=== PATIENT | female | born 1945 | race Caucasian/White ===

== ENCOUNTER 2023-06-25 17:58 | Emergency (ER) | payer BC, MEDICARE, SELFPAY ==
[2023-06-25 18:12] VITALS: BP 185/83; PULSE 76; RESP 16; TEMP 36.9; O2SAT 97; BMI 20.8
--- NOTE | 2023-06-25 18:29 | CT_ITS ---
Patient: CHRISTOPHER MENDIOLA Facility:?[facility] Patient ID:?[id number] Site Patient ID:?[id number]. Site :?1945 Study:?CT-Facial W/O-06/25/2023 7:45:27 PM Ordering Physician:SONNY Final Report: INDICATION: Fall. TECHNIQUE: Noncontrast CT images of the facial bones. COMPARISON: None. FINDINGS: The facial bones are intact. No acute fracture or dislocation. The globes are symmetric. No retrobulbar hemorrhage. The paranasal sinuses are well aerated. The mastoid air cells are clear. IMPRESSION: No acute fracture or dislocation of the facial bones. Please note that all CT scans at this facility use dose modulation, iterative reconstruction, and/or weight-based dosing when appropriate to reduce radiation dose to as low as reasonably achievable. Dictated by Marcello Hussein MD @ 06/25/2023 8:07:12 PM Signed by:?Marcello Hussein MD @06/25/2023 8:07:12 PM (Electronic Signature)
--- NOTE | 2023-06-25 18:29 | CT_ITS ---
Patient: CHRISTOPHER MENDIOLA Facility:?[facility] Patient ID:?[id number] Site Patient ID:?[id number]. Site :?1945 Study:?CT-Chest W/O-06/25/2023 7:46:24 PM Ordering Physician:SONNY Final Report: INDICATION: Trauma. Chest pain. TECHNIQUE: Multiplanar CT examination of the chest was performed after the administration without the use of intravenous contrast. COMPARISON: None. FINDINGS: Lower neck: The visualized thyroid is unremarkable. Cardiovascular: Heart size is normal. Thoracic aorta and pulmonary artery are normal in caliber. Mild atherosclerotic calcifications of the aortic arch. Dense coronary arterial calcifications. Mediastinum and lymph nodes: Unremarkable. No pathologic mediastinal or hilar lymphadenopathy by size criteria. Lungs: Moderate pulmonary emphysema. Small calcified granuloma within the left lower lobe posteriorly measuring 3 millimeters. Dependent atelectasis. Linear bandlike opacification of the lung bases bilaterally, likely subsegmental atelectasis and/or scarring. No focal consolidation. Airway: The trachea remains patent and midline. Mild diffuse peribronchial wall thickening. Pleura: No pleural effusions or pneumothorax Chest wall: There is a lobulated soft tissue mass measuring 4.6 x 2.1 cm along the right anterior chest wall/breast it appears have associated coarse calcifications. Bones: Likely acute, minimally displaced fractures of the anterior aspect of the left 3rd and 4th ribs. Mild degenerative changes of the thoracic spine. Upper abdomen: Unremarkable. IMPRESSION: 1. Likely acute, minimally displaced fractures of the anterior left 3rd and 4th ribs. No pneumothorax or pleural effusions. 2. Large lobulated soft tissue attenuating mass measuring 4.6 cm within the right breast. This would be an atypical appearance of a hematoma, given the presence of punctate, coarse calcifications. Advise direct inspection and correlate with recent or follow-up mammography for further evaluation to exclude underlying neoplasm. 3. Moderate emphysema. 4. Dense coronary arterial calcifications. Advise correlation with ASCVD evaluation. Please note that all CT scans at this facility use dose modulation, iterative reconstruction, and/or weight-based dosing when appropriate to reduce radiation dose to as low as reasonably achievable. Dictated by Xavier Kline MD @ 06/25/2023 8:19:25 PM ----- ADDENDUM ----- Findings communicated with Dr. Garcia at 20:32 on 06/25/2023. Dictated by Xavier Kline MD @ Jun 25 2023 9:20PM Signed by:?Xavier Kline MD @06/25/2023 8:19:25 PM (Electronic Signature)
--- NOTE | 2023-06-25 18:30 | CT_ITS ---
Patient: CHRISTOPHER MENDIOLA Facility:?[facility] Patient ID:?[id number] Site Patient ID:?[id number]. Site :?1945 Study:?CT-Spine Cervical W/O-06/25/2023 7:47:14 PM Ordering Physician:SONNY Final Report: INDICATION: Fall. TECHNIQUE: Noncontrast CT images of the cervical spine. COMPARISON: None. FINDINGS: Reversal of the cervical lordosis. Mild leftward cervical curvature. No acute fracture or traumatic subluxation. Advanced disc height loss at C5-6. Multilevel posterior disc osteophyte complexes contribute up to moderate spinal canal narrowing at C6-7. Multilevel uncinate spurring and facet arthropathy contributing up to moderately advanced neural foraminal stenosis bilaterally at C5-6. Emphysema in the lung apices. IMPRESSION: 1. No acute fracture or traumatic subluxation. 2. Multilevel cervical spondylosis. Please note that all CT scans at this facility use dose modulation, iterative reconstruction, and/or weight-based dosing when appropriate to reduce radiation dose to as low as reasonably achievable. Dictated by Marcello Hussein MD @ 06/25/2023 8:09:36 PM Signed by:?Marcello Hussein MD @06/25/2023 8:09:36 PM (Electronic Signature)
--- NOTE | 2023-06-25 18:30 | CT_ITS ---
Patient: CHRISTOPHER MENDIOLA Facility:?[facility] Patient ID:?[id number] Site Patient ID:?[id number]. Site :?1945 Study:?CT-Head W/O-06/25/2023 7:44:07 PM Ordering Physician:SONNY Final Report: INDICATION: Fall. TECHNIQUE: Noncontrast CT images of the brain. COMPARISON: None. FINDINGS: Mild diffuse cerebral volume loss. No mass effect or midline shift. The starks- white differentiation is maintained. No acute intracranial hemorrhage or pathologic extra-axial fluid collection. Scattered hypoattenuation in the supratentorial white matter, typical for mild chronic microvascular ischemic changes. Intracranial atherosclerotic calcifications. The globes are symmetric. The calvarium is intact. The visualized paranasal sinuses and mastoid air cells are clear. IMPRESSION: No acute intracranial hemorrhage or mass effect. Please note that all CT scans at this facility use dose modulation, iterative reconstruction, and/or weight-based dosing when appropriate to reduce radiation dose to as low as reasonably achievable. Dictated by Marcello Hussein MD @ 06/25/2023 8:05:09 PM Signed by:?Marcello Hussein MD @06/25/2023 8:05:09 PM (Electronic Signature)
--- NOTE | 2023-06-25 18:32 | ED.FALL ---
HPI - Fall General Date Seen: 06/25/23 Chief Complaint: Fall/Minor Trauma Stated Complaint: fell, mouth and rib pain Time Seen by Provider: 06/25/23 18:04 Source: patient Mode of arrival: ambulatory Limitations: no limitations History of Present Illness HPI Narrative: Patient is a 77-year-old female presenting to the emergency department after a fall. At 09:30 she states she got dizzy and fell. States the dizziness occurred because she has been trying to quit smoking and has not has occurred for several days. She gave in and bought pack of cigarettes and after she had 1 she started walking in the dizziness occurred causing her to fall. She is currently not dizzy. Initially was not in any pain. She states this dizziness routinely occurs after she smokes a cigarette after trying to quit for several days. This is not any different than normal for her after she smokes. Initially was not having pain but is daily was going on she is having worsening left rib pain. She has pain in the left axillary region that is better when she supports her left breast. Currently feels asymptomatic other than the pain. Denies chest pain, shortness of breath, headache, vision changes, weakness, numbness, diarrhea, constipation. Does state her neck feels stiff. No other concerns noted at this time. She does home with her daughter. Related Data Home Medications Medication Instructions Recorded Confirmed aspirin 81 mg tablet,delayed 81 mg PO DAILY 06/25/23 06/25/23 release (Adult Low Dose Aspirin) atorvastatin 40 mg tablet 40 mg PO DAILY 06/25/23 06/25/23 Allergies Allergy/AdvReac Type Severity Reaction Status Date / Time tetracycline Allergy Unknown Verified 06/25/23 18:17 Review of Systems Status of ROS: Reports: 10 or more systems reviewed and unremarkable except as noted in History and below [facility] Social History Smoking Status: Current some day smoker What tobacco products do you use: cigarettes Do you use any of these nicotine containing products: None Second hand tobacco smoke exposure: No How often do you have a drink containing alcohol: monthly or less How many standard drinks containing alcohol do you have on a typical day: 1 or 2 How often do you have six or more drinks on one occasion: Never AUDIT-C Alcohol total score: 1 Non-prescribed substance use: denies use service: No Exam Narrative: Exam Narrative: Const: Well-nourished, Well-developed, in mild distress Eyes: PERRL, no conjunctival injection, and symmetrical lids HENT: Atraumatic external nose and ears. Moist mucous membranes. Abrasion to left upper lip Neck: Symmetric, trachea midline, No thyromegaly. CVS: RRR, No murmurs or gallops. Peripheral pulses 2+ and equal in all extremities RESP: Unlabored respiratory effort. Clear to auscultation bilaterally. GI: Nontender/Nondistended, No rebound or guarding. MSK:Extremities w/o deformity, Normal Active ROM, tenderness to palpation left axillary region Skin: Warm, Dry. No rashes or lesions. No bruising Neuro: Normal Muscle tone, No focal neurological deficits. Psych: Awake, Alert, & Oriented x3. Appropriate mood and affect. Const: Vital Signs, click to edit/add: Vital Signs - 24 hr 06/25/23 18:12 Temperature 98.5 F Pulse Rate [Pulse Oximeter] 76 Respiratory Rate 16 Blood Pressure [Ri ght Upper Arm] 185/83 H Pulse Oximetry 97 Oxygen Delivery Me thod Room Air Course Vital Signs Vital signs: Initial Vital Signs Temperature 98.5 F 06/25/23 18:12 Temperature Source Temporal Artery Scan 06/25/23 18:12 Pulse Rate 76 06/25/23 18:12 Pulse Rhythm Regular 06/25/23 18:12 Pulse Strength 3+ Normal 06/25/23 18:12 Respiratory Rate 16 06/25/23 18:12 Blood Pressure 185/83 H 06/25/23 18:12 Blood Pressure Mean 117 H 06/25/23 18:12 Blood Pressure Position Sitting 06/25/23 18:12 Pulse Oximetry 97 06/25/23 18:12 Oxygen Delivery Method Room Air 06/25/23 18:12 Vital Signs Temperature 98.5 F 06/25/23 18:12 Pulse Rate 76 06/25/23 18:12 Respiratory Rate 16 06/25/23 18:12 Blood Pressure 185/83 H 06/25/23 18:12 Pulse Oximetry 97 06/25/23 18:12 Oxygen Delivery Method Room Air 06/25/23 18:12 Temperature 98.5 F 06/25/23 18:12 Pulse Rate 76 06/25/23 18:12 Respiratory Rate 16 06/25/23 18:12 Blood Pressure 185/83 H 06/25/23 18:12 Pulse Oximetry 97 06/25/23 18:12 Oxygen Delivery Method Room Air 06/25/23 18:12 Medications Administered Medications: Discontinued Medications Generic Name Dose Route Start Last Admin Trade Name Andrei PRN Reason Stop Dose Admin Oxycodone HCl 2.5 mg 06/25/23 18:34 06/25/23 18:46 Oxycodone 1 Mg/Ml Oral Soln PO 06/25/23 18:35 Not Given ONCE ONE Oxycodone HCl 2.5 mg 06/25/23 18:41 06/25/23 18:45 Oxycodone 5 Mg Tablet PO 06/25/23 18:42 2.5 mg ONCE ONE Administration MDM - Fall MDM Narrative Medical decision making narrative: Patient is a 77-year-old female presenting to the emergency department after a fall. She did have dizziness which led to the fall. By her description is dizziness is not overtly abnormal for her. Well this is likely secondary to her smoking the cigarette as she explains I will check for electrolyte abnormalities or cardiac issues. CBC, BMP, troponin, EKG all ordered. I am also going to CT her chest to get a better evaluation of the ribs since the morning scanning the head, neck, facial bones. Will give her 2.5 mg of oxycodone for pain control. Patient's lab work shows no concerning findings. EKG shows no concerning findings. CT scans of the head, face, cervical spine showed no concerning findings. CT scan of the chest shows a 3rd and 4th nondisplaced rib fracture. This is consistent with where her pain is. There is also a mass seen in her right breast. She states her last mammogram was 1 year ago and she was told she has fibro lytic changes. While this may be that I recommended to her that she follow-up with her primary care provider to confirm. Will be given oxycodone via instymeds for pain control. Informed that they can increase her fall risk. Her last Tdap was 2019. She is safe for discharge. Lab Data Labs: Lab Results 06/25/23 06/25/23 Range/Units 18:29 18:46 WBC 7.52 (4.50-11.00) K/uL RBC 4.11 (4.00-5.20) m/uL Hgb 11.7 L (12.0-16.0) gm/dL Hct 37.7 (33.0-51.0) % MCV 92 (80-100) fL MCH 29 (26-34) pg MCHC 31 L (32-36) gm/dL RDW Coeff of Brandi 14.4 (11.5-15.5) % Plt Count 318 (140-440) K/uL Neut % (Auto) 74.4 H (42.0-72.0) % Lymph % (Auto) 13.0 L (20-44) % Mathews % (Auto) 9.6 (0.0-11.0) % Eos % (Auto) 2.1 (0.0-7.0) % Baso % (Auto) 0.8 (0.0-3.0) % Neut # (Auto) 5.60 (1.7-7.0) K/uL Lymph # (Auto) 1.00 (0.90-2.90) K/uL Mathews # (Auto) 0.70 (0.00-0.90) K/UL Eos # (Auto) 0.16 (0.00-0.50) K/uL Baso # (Auto) 0.06 (0.00-0.30) K/uL Abs Immat Gran (auto) 0.01 (0.00-0.30) K/uL Imm/Tot Granulo (auto) 0.1 % Sodium 140 (135-149) mmol/L Potassium 4.0 (3.6-5.1) mmol/L Chloride 107 (96-114) mmol/L Carbon Dioxide 27 (20-32) mmol/L Anion Gap 6 L (7-15) mEq/L BUN 21 (7-30) mg/dL Creatinine 1.1 (0.5-1.5) mg/dL Estimated Creat Clear 35.81 Estimated GFR 51 ml/min Glucose 105 (60-115) mg/dL Calcium 9.3 (8.4-10.6) mg/dL POC Troponin I 0.01 (0.01-0.04) ng/ml Imaging Data CT scan chest: Attestation: I have reviewed the pertinent imaging results. Radiologist's impression: 1. Likely acute, minimally displaced fractures of the anterior left 3rd and 4th ribs. No pneumothorax or pleural effusions. 2. Large lobulated soft tissue attenuating mass measuring 4.6 cm within the right breast. This would be an atypical appearance of a hematoma, given the presence of punctate, coarse calcifications. Advise direct inspection and correlate with recent or follow-up mammography for further evaluation to exclude underlying neoplasm. 3. Moderate emphysema. 4. Dense coronary arterial calcifications. Advise correlation with ASCVD evaluation. Please note that all CT scans at this facility use dose modulation, iterative reconstruction, and/or weight-based dosing when appropriate to reduce radiation dose to as low as reasonably achievable. Dictated by Xavier Kline MD @ 06/25/2023 8:19:[address] scan cervical spine: Attestation: I have reviewed the pertinent imaging results. Radiologist's impression: 1. No acute fracture or traumatic subluxation. 2. Multilevel cervical spondylosis. Please note that all CT scans at this facility use dose modulation, iterative reconstruction, and/or weight-based dosing when appropriate to reduce radiation dose to as low as reasonably achievable. Dictated by Marcello Hussein MD @ 06/25/2023 8:09:[address] scan head: Attestation: I have reviewed the pertinent imaging results. Radiologist's impression: No acute intracranial hemorrhage or mass effect. Please note that all CT scans at this facility use dose modulation, iterative reconstruction, and/or weight-based dosing when appropriate to reduce radiation dose to as low as reasonably achievable. Dictated by Marcello Hussein MD @ 06/25/2023 8:05:[address] scan facial bones: Attestation: I have reviewed the pertinent imaging results. Radiologist's impression: No acute fracture or dislocation of the facial bones. Please note that all CT scans at this facility use dose modulation, iterative reconstruction, and/or weight-based dosing when appropriate to reduce radiation dose to as low as reasonably achievable. Dictated by Marcello Hussein MD @ 06/25/2023 8:07:12 PM ECG Data Attestation: I personally reviewed and interpreted this ECG as follows: Prior ECG tracings: not available for review Interpretation: Normal sinus rhythm with a rate 67 beats per minute, normal intervals, normal axis, no ST or T-wave abnormalities Discharge Plan Discharge Clinical Impression: Fracture of rib Qualifiers: Encounter type: initial encounter Rib fracture type: multiple ribs Fracture type: closed Laterality: left Qualified Code(s): S22.42XA - Multiple fractures of ribs, left side, initial encounter for closed fracture Patient Disposition: Home, Self-Care Condition: Stable Instructions: Rib Fracture (ED) Additional Instructions: Take Tylenol and ibuprofen for pain. If that is not helping you can use the oxycodone. Be careful the oxycodone can increase your fall risk. He can try taking the 5 mg 1st x 3 feel like that becomes too much cut the pills in half for any future doses. There is also a mass seen in your right breast. This could be a previous fibrotic changes seen on your previous mammogram. I would follow-up with the primary care provider to confirm. Prescriptions: No Action aspirin [Adult Low Dose Aspirin] 81 mg tablet,delayed release (DR/EC) 81 mg PO DAILY atorvastatin 40 mg tablet 40 mg PO DAILY Follow Up/Referrals: Provider,Not a Local [Primary Care Provider] - Stand Alone Forms: [employer] Info Instructions
[2023-06-25] MEDS: OXYCODONE 5 MG TABLET 2.5 MG PO (18:45)
[2023-06-25 18:55] LABS: Basophils Absolute Auto 0.06 K/uL (0.00-0.30); Basophils Percent Auto 0.8 % (0.0-3.0); Eosinophils Absolute Auto 0.16 K/uL (0.00-0.50); Eosinophils Percent Auto 2.1 % (0.0-7.0); Hematocrit 37.7 % (33.0-51.0); Hemoglobin* 11.7 gm/dL (12.0-16.0); Immature Granulocytes Abs Auto 0.01 K/uL (0.00-0.30); Immature Granulocytes Pct Auto 0.1 %; Mean Corpuscular HGB Conc 31 gm/dL (32-36); Mean Corpuscular Hemoglobin 29 pg (26-34); Mean Corpuscular Volume 92 fL (80-100); Monocytes Percent Auto 9.6 % (0.0-11.0); Neutrophils Percent Auto 74.4 % (42.0-72.0); Platelet Count* 318 K/uL (140-440); RDW Coefficient of Variation % 14.4 % (11.5-15.5); Red Blood Count 4.11 m/uL (4.00-5.20); White Blood Count* 7.52 K/uL (4.50-11.00)
[2023-06-25 18:57] LABS: Slide Review Reflex No
[2023-06-25 19:07] LABS: Chloride* 107 mmol/L (96-114); Sodium* 140 mmol/L (135-149)
[2023-06-25 19:10] LABS: Anion Gap 6 mEq/L (7-15); Blood Urea Nitrogen* 21 mg/dL (7-30); Calcium* 9.3 mg/dL (8.4-10.6); Carbon Dioxide* 27 mmol/L (20-32); Creatinine* 1.1 mg/dL (0.5-1.5); Est. Creatinine Clearance* 35.81; Estimated Glomerular Filt Rate 51 ml/min; Glucose* 105 mg/dL (60-115)
[2023-06-25 19:11] LABS: Troponin, Point-of-Care* 0.01 ng/ml (0.01-0.04)
[2023-06-25 20:48] VITALS: BP 172/87; PULSE 71; RESP 20; O2SAT 95
== END 2023-06-25 20:51 | disposition home or self-care (01) ==
PROVIDERS: Emergency Provider Student in an Organized Health Care Education/Training Program
DX: S22.42XA Multiple fractures of ribs, left side, initial encounter for closed fracture (principal); W18.39XA Other fall on same level, initial encounter; Y93.01 Activity, walking, marching and hiking
CPT/HCPCS: 36415; 70450; 70486; 71250; 72125; 80048; 84484; 85025; 93005; 99283; 99284; 99285; A9270

== ENCOUNTER 2023-10-22 20:37 | Emergency (ER) | payer MEDICARE, SELFPAY ==
[2023-10-22] VITALS (11 sets, daily range): BP systolic 109–131; BP diastolic 56–68; PULSE 66–84; RESP 16; TEMP 37; O2SAT 91–98; BMI 20.6
--- NOTE | 2023-10-22 21:02 | CRLHL7_ITS ---
For Patients: As a result of the Cures Act, medical imaging exams and procedure reports are released immediately into your electronic medical record. You may view this report before your referring provider. If you have questions, please contact your health care provider. INDICATION: Shortness of breath TECHNIQUE: Chest radiograph 2 views COMPARISON: None FINDINGS: Mediastinum: The mediastinum is normal in appearance. The heart silhouette is normal in size and morphology. Lung: Both lungs are unremarkable in appearance. No sign of pleural effusion seen. No pneumothorax is identified. Bone and Soft tissue: Unremarkable for age. IMPRESSION: 1. No acute cardiopulmonary disease is seen. Dictated by: Emile Clinton MD @ 10/22/2023 22:01:41 (Electronically Signed)
[2023-10-22] MEDS: 0.9 % SODIUM CHLORIDE 500 ML 500 ML IV ×2 (21:15→22:30)
[2023-10-22 21:21] LABS: Troponin, Point-of-Care* 0.01 ng/ml (0.01-0.04)
[2023-10-22 21:23] LABS: Lactate* 0.8 mmol/L (0.5-1.9)
--- NOTE | 2023-10-22 21:26 | ED.GENADULT ---
HPI - General Adult General Chief complaint: Nausea/Vomiting Stated complaint: fever, vomiting, diarrhea, confusion Time Seen by Provider: 10/22/23 20:50 Source: patient Mode of arrival: ambulatory Limitations: no limitations History of Present Illness HPI narrative: 77-year-old female coming in today because of confusion. Patient lives with her daughter who brought the patient in today. Daughter states that this morning she was talking to her mom about going to end events today and the patient stated that she did not feel well. She had an episode of vomiting this morning and diarrhea. Then she started to not make sense. She would say some and make noises but would not really make any sense. The patient seemed oblivious to this. She then rested and was doing better during the day. Daughter checked on her in the afternoon and she was normal. Then checked on her again this evening around 7:00 p.m. and patient seemed quite confused. Was saying words this time which is was not making any sense. Daughter states that for the last 2 weeks she has noticed that her mother has become more weak, requiring more effort to do her daily activities. Patient does live with her daughter in her daughter's home. Daughter denies anything recent fevers, chills, illness. She has been eating well except for today she has not eaten anything. She has not had any more vomiting or diarrhea since this morning. Daughter states that patient felt warm to the touch but did not measure her temperature at home. Patient had 200 mg of ibuprofen at 8:00 p.m. Related Data Home Medications ?Medication ?Instructions ?Recorded ?Confirmed aspirin 81 mg tablet,delayed 81 mg PO DAILY 06/25/23 06/25/23 release (Adult Low Dose Aspirin) atorvastatin 40 mg tablet 40 mg PO DAILY 06/25/23 06/25/23 Allergies Allergy/AdvReac Type Severity Reaction Status Date / Time tetracycline Allergy Unknown Verified 06/25/23 18:17 Review of Systems Status of ROS: Reports: 10 or more systems reviewed and unremarkable except as noted in History and below [facility] Social History Smoking Status: Current some day smoker What tobacco products do you use: cigarettes Do you use any of these nicotine containing products: None Second hand tobacco smoke exposure: No How often do you have a drink containing alcohol: monthly or less How many standard drinks containing alcohol do you have on a typical day: 1 or 2 How often do you have six or more drinks on one occasion: Never AUDIT-C Alcohol total score: 1 Non-prescribed substance use: denies use service: No Exam Narrative: Exam Narrative: Well-nourished well-developed patient in no acute distress. Patient is a bit confused, does not know the day. Answers questions appropriately and is cooperative. Mood and affect are appropriate. No tangential or magical thinking noted. Patient speaks in full sentences without needing to catch her breath. No word-finding difficulty, no slurred speech. HEENT: Normocephalic atraumatic. No facial asymmetry noted. Pupils are equally round reactive to light. Extraocular muscles are intact. Conjunctivae are moist without any icterus noted. Moist mucous membranes. Posterior pharynx is normal. Neck is soft without any lymphadenopathy. Cardiovascular: Heart is regular rate and rhythm S1 and S2 are present without any murmurs. Lungs: Clear to auscultation bilaterally no wheezes rhonchi or rales are appreciated. Patient takes deep breaths without any discomfort. Abdomen: Soft and nontender nondistended with normal bowel sounds. No guarding or rebound. No masses or organomegaly appreciated. Extremities: Bilateral lower extremities are without edema. Normal DP and PT pulses. Skin: Well perfused without any obvious rashes. Strength is 5/5 of the upper and lower extremities both of the distal and proximal muscle groups. Reflexes are 2+ and symmetric at the knees. Cranial nerves 3-12 are normal. [id number] is normal. There is no nystagmus either horizontally or vertically. Const: Vital Signs, click to edit/add: Vital Signs - 24 hr 10/22/23 20:50 10/22/23 21:02 10/22/23 21:15 Temperature 98.6 F Pulse Rate 77 Pulse Rate [Pulse Oximeter] 84 Respiratory Rate 16 Blood Pressure Blood Pressure [Ri ght Upper Arm] 109/68 Pulse Oximetry 98 94 95 Oxygen Delivery Me thod Room Air 10/22/23 21:36 10/22/23 22:01 10/22/23 22:16 Temperature Pulse Rate 76 70 Pulse Rate [Pulse Oximeter] Respiratory Rate Blood Pressure 123/56 L Blood Pressure [Ri ght Upper Arm] Pulse Oximetry 95 96 Oxygen Delivery Me thod 10/22/23 22:32 10/22/23 23:21 10/22/23 23:30 Temperature Pulse Rate 66 68 Pulse Rate [Pulse Oximeter] Respiratory Rate Blood Pressure 122/62 Blood Pressure [Ri ght Upper Arm] Pulse Oximetry 95 95 Oxygen Delivery Me thod 10/22/23 23:31 Temperature Pulse Rate 66 Pulse Rate [Pulse Oximeter] Respiratory Rate Blood Pressure 131/61 Blood Pressure [Ri ght Upper Arm] Pulse Oximetry 91 Oxygen Delivery Me thod Course Course ED Course: IV is established and patient is given 500 mL of normal saline. EKG, read by me, shows normal sinus rhythm with a pulse of 71. Chest x-ray, read by me, shows hyperinflation, no acute processes. CBC shows mild anemia with a hemoglobin of 10.4. Normal white count. Chemistries are just slightly off with a sodium of 132, potassium 3.5. Creatinine is stable at 1.1 with a BUN of 27. Calcium is low at 8.0. LFTs are elevated with an AST of 93 and ALT of 104, normal bilirubin and alkaline phosphatase. Normal troponin. CRP elevated at 2.4. Negative for COVID and influenza. Craig[place] was negative. After 500 mL of normal saline patient was still unable to give a urine sample. Blood pressure did come up to 123 systolic. At this time we did go ahead and start another 500 mL over an hour. Patient was also asking for coffee, stating that this helps her urinate. Therefore she was given a cup of decaffeinated coffee to drink. She was then able to urinate. UA was unremarkable. Discussed results with patient and daughter. Daughter states that patient already seems much better. Patient herself states that she feels better and states that ?I was not right earlier?. Discussed the possibility of a gastroenteritis and/or while dehydration causing her symptoms. We discussed symptomatic management and monitoring for now. Patient and daughter are comfortable with this plan. Vital Signs Vital signs: Initial Vital Signs Temperature 98.6 F 10/22/23 20:50 Temperature Source Temporal Artery Scan 10/22/23 20:50 Pulse Rate 84 10/22/23 20:50 Respiratory Rate 16 10/22/23 20:50 Blood Pressure 109/68 10/22/23 20:50 Blood Pressure Mean 81 10/22/23 20:50 Blood Pressure Position Sitting 10/22/23 20:50 Pulse Oximetry 98 10/22/23 20:50 Oxygen Delivery Method Room Air 10/22/23 20:50 Vital Signs Temperature 98.6 F 10/22/23 20:50 Pulse Rate 84 10/22/23 20:50 Respiratory Rate 16 10/22/23 20:50 Blood Pressure 109/68 10/22/23 20:50 Pulse Oximetry 98 10/22/23 20:50 Oxygen Delivery Method Room Air 10/22/23 20:50 Temperature 98.6 F 10/22/23 20:50 Pulse Rate 66 10/22/23 23:31 Respiratory Rate 16 10/22/23 20:50 Blood Pressure 131/61 10/22/23 23:31 Pulse Oximetry 91 10/22/23 23:31 Oxygen Delivery Method Room Air 10/22/23 20:50 Medications Administered Medications: Discontinued Medications Generic Name Dose Route Start Last Admin Trade Name Freq PRN Reason Stop Dose Admin Sodium Chloride 500 mls @ 500 mls/hr 10/22/23 21:02 10/22/23 22:20 0.9 % Sodium Chloride 500 Ml IV 10/22/23 22:01 Infused .Q1H ONE Infusion Sodium Chloride 500 mls @ 500 mls/hr 10/22/23 22:27 10/22/23 23:06 0.9 % Sodium Chloride 500 Ml IV 10/22/23 23:26 Infused .Q1H ONE Infusion Medical Decision Making MDM Narrative Medical decision making narrative: 77-year-old female status post vomiting, diarrhea and confusion. Feeling better with treatment. Plan per above Medical Records Medical records reviewed: Yes I reviewed the patient's medical records Lab Data Lab results reviewed: Yes I reviewed the patient's lab results Labs: Lab Results 10/22/23 10/22/23 Range/Units 21:11 23:20 WBC 5.98 (4.50-11.00) K/uL RBC 3.83 L (4.00-5.20) m/uL Hgb 10.4 L (12.0-16.0) gm/dL Hct 33.2 (33.0-51.0) % MCV 87 (80-100) fL MCH 27 (26-34) pg MCHC 31 L (32-36) gm/dL RDW Coeff of Brandi 13.6 (11.5-15.5) % Plt Count 272 (140-440) K/uL Neut % (Auto) 85.8 H (42.0-72.0) % Lymph % (Auto) 4.8 L (20-44) % [place] % (Auto) 7.7 (0.0-11.0) % Eos % (Auto) 0.2 (0.0-7.0) % Baso % (Auto) 0.3 (0.0-3.0) % Neut # (Auto) 5.10 (1.7-7.0) K/uL Lymph # (Auto) 0.30 L (0.90-2.90) K/uL [place] # (Auto) 0.50 (0.00-0.90) K/UL Eos # (Auto) 0.01 (0.00-0.50) K/uL Baso # (Auto) 0.02 (0.00-0.30) K/uL Abs Immat Gran (auto) 0.07 (0.00-0.30) K/uL Imm/Tot Granulo (auto) 1.2 % Sodium 132 L (135-149) mmol/L Potassium 3.5 L (3.6-5.1) mmol/L Chloride 104 (96-114) mmol/L Carbon Dioxide 23 (20-32) mmol/L Anion Gap 5 L (7-15) mEq/L BUN 27 (7-30) mg/dL Creatinine 1.1 (0.5-1.5) mg/dL Estimated Creat Clear 35.63 Estimated GFR 51 ml/min Glucose 114 (60-115) mg/dL Lactate 0.8 (0.5-1.9) mmol/L Calcium 8.0 L (8.4-10.6) mg/dL Total Bilirubin 0.5 (0.1-1.5) mg/dL Direct Bilirubin 0.4 (0.0-0.5) mg/dL AST 93 H (12-35) U/L ALT 104 H (4-35) U/L Alkaline Phosphatase 114 (40-150) U/L Troponin I 0.02 (0.01-0.04) ng/mL C-Reactive Protein 2.4 H (0.5-1.0) mg/dL Total Protein 6.1 (6.0-8.3) g/dL Albumin 3.3 (3.3-5.0) g/dL Urine Color Yellow (Yellow) Urine Appearance Clear (Clear) Urine pH 5.5 (5.0-8.5) Ur Specific Gould 1.020 (1.000-1.030) Urine Protein 1+ A (Negative) Urine Glucose (UA) Negative (Negative) Urine Ketones Negative (Negative) Urine Blood Negative (Negative) Urine Nitrite Negative (Negative) Urine Bilirubin Negative (Negative) Urine Urobilinogen 0.2 (0.2-1.0) Ur Leukocyte Esterase Negative (Negative) Urine RBC 0-2 (0-2) Urine WBC 0-2 (0-5) Ur Squamous Epith Cells Few (None-Few) Amorphous Sediment Moderate A (None) Urine Bacteria Few A (None) Urine Mucus Few A (None) Ethyl Alcohol < 0.01 L (0.01-0.03) % SARS-CoV-2 (PCR) Negative SARS-CoV-2 (Negative) Monoscreen Negative (Negative) Influenza Type A (PCR) Negative PCR FLU A (Negative) Influenza Type B (PCR) Negative PCR FLU B (Negative) POC Troponin I 0.01 (0.01-0.04) ng/ml Imaging Data Chest x-ray: Attestation: I have reviewed the pertinent imaging results. Radiologist's impression: TECHNIQUE: Chest radiograph 2 views COMPARISON: None FINDINGS: Mediastinum: The mediastinum is normal in appearance. The heart silhouette is normal in size and morphology. Lung: Both lungs are unremarkable in appearance. No sign of pleural effusion seen. No pneumothorax is identified. Bone and Soft tissue: Unremarkable for age. IMPRESSION: 1. No acute cardiopulmonary disease is seen. ECG Data Attestation: I personally reviewed and interpreted this ECG as follows: Discharge Plan Discharge Clinical Impression: Gastroenteritis, Mild dehydration Patient Disposition: Home w/ Parent or Adult Condition: Improved Additional Instructions: Make sure to stay well hydrated and get good sleep. If symptoms worsen can certainly return to the emergency department or follow-up with primary care provider. Prescriptions: No Action aspirin [Adult Low Dose Aspirin] 81 mg tablet,delayed release (DR/EC) 81 mg PO DAILY atorvastatin 40 mg tablet 40 mg PO DAILY Follow Up/Referrals: Provider,Not a Local [Primary Care Provider] - Stand Alone Forms: [employer] Info Instructions
[2023-10-22 21:46] LABS: Chloride* 104 mmol/L (96-114)
[2023-10-22 21:47] LABS: Potassium* 3.5 mmol/L (3.6-5.1); Sodium* 132 mmol/L (135-149)
[2023-10-22 21:48] LABS: Albumin* 3.3 g/dL (3.3-5.0)
[2023-10-22 21:49] LABS: Creatinine* 1.1 mg/dL (0.5-1.5); Est. Creatinine Clearance* 35.63; Estimated Glomerular Filt Rate 51 ml/min
[2023-10-22 21:50] LABS: Anion Gap 5 mEq/L (7-15); Blood Urea Nitrogen* 27 mg/dL (7-30); Carbon Dioxide* 23 mmol/L (20-32); Ethanol* < 0.01 % (0.01-0.03); Glucose* 114 mg/dL (60-115)
[2023-10-22 21:51] LABS: Alanine Aminotransferase* 104 U/L (4-35); Alkaline Phosphatase* 114 U/L (40-150); Aspartate Amino Transferase* 93 U/L (12-35); Bilirubin Direct* 0.4 mg/dL (0.0-0.5); Bilirubin Total* 0.5 mg/dL (0.1-1.5); Total Protein* 6.1 g/dL (6.0-8.3)
[2023-10-22 21:53] LABS: C Reactive Protein* 2.4 mg/dL (0.5-1.0)
[2023-10-22 21:58] LABS: Basophils Absolute Auto 0.02 K/uL (0.00-0.30); Basophils Percent Auto 0.3 % (0.0-3.0); Eosinophils Absolute Auto 0.01 K/uL (0.00-0.50); Eosinophils Percent Auto 0.2 % (0.0-7.0); Hematocrit 33.2 % (33.0-51.0); Hemoglobin* 10.4 gm/dL (12.0-16.0); Immature Granulocytes Abs Auto 0.07 K/uL (0.00-0.30); Immature Granulocytes Pct Auto 1.2 %; Lymphocytes Percent Auto 4.8 % (20-44); Mean Corpuscular HGB Conc 31 gm/dL (32-36); Mean Corpuscular Hemoglobin 27 pg (26-34); Mean Corpuscular Volume 87 fL (80-100); Monocytes Percent Auto 7.7 % (0.0-11.0); Neutrophils Percent Auto 85.8 % (42.0-72.0); Platelet Count* 272 K/uL (140-440); RDW Coefficient of Variation % 13.6 % (11.5-15.5); Red Blood Count 3.83 m/uL (4.00-5.20); White Blood Count* 5.98 K/uL (4.50-11.00)
[2023-10-22 22:00] LABS: Slide Review Reflex No
[2023-10-22 22:02] LABS: PCR FLU A Negative PCR FLU A (Negative); PCR FLU B Negative PCR FLU B (Negative); SARS PCR* Negative SARS-CoV-2 (Negative); Troponin I* 0.02 ng/mL (0.01-0.04)
[2023-10-22 22:32] LABS: Mono Screen* Negative (Negative)
[2023-10-22 23:33] LABS: Appearance Urine Clear (Clear); Bilirubin Urine Negative (Negative); Blood Urine Negative (Negative); Color Urine Yellow (Yellow); Glucose Urine Negative (Negative); Ketones Urine Negative (Negative); Leukocyte Esterase Urine Negative (Negative); Nitrite Urine Negative (Negative); Protein Urine 1+ (Negative); Urobilinogen Urine 0.2 (0.2-1.0); pH Urine 5.5 (5.0-8.5)
[2023-10-22 23:43] LABS: Amorphous Sediment Urine Moderate; Bacteria Urine Few; Mucus Urine Few; RBC Urine 0-2 (0-2); Squamous Epithelial Cell Urine Few (None-Few); WBC Urine 0-2 (0-5)
[2023-10-23] VITALS: PULSE 71; O2SAT 93
[2023-10-23 00:01] VITALS: BP 140/62; PULSE 69; O2SAT 95
== END 2023-10-23 00:10 | disposition home or self-care (01) ==
PROVIDERS: Emergency Provider Family Medicine
DX: K52.9 Noninfective gastroenteritis and colitis, unspecified (principal); E86.0 Dehydration
CPT/HCPCS: 36415; 71046; 80048; 80076; 81001; 82077; 83605; 84484; 85025; 86140; 86308; 87086; 87631; 93005; 94761; 99284; J7030